=== PATIENT | male | born 1995 | race Two or more races ===

== ENCOUNTER 2022-04-15 08:31 | Emergency (ER) | payer OTHER ==
[~2022-04-15] VITALS: Ht 185.4 cm; Wt 80.7 kg
[2022-04-15 08:37] VITALS: BP 117/67
[2022-04-15] MEDS ORDERED: OMEP40CA21 PO (08:55)
--- NOTE | 2022-04-15 09:01 | NUR ---
Patient discharged to home in stable condition. Written and verbal after care instructions given. Patient verbalizes understanding of instruction.
== END 2022-04-15 09:02 | disposition home or self-care (01) ==
LOC: ER 08:35
DX: R10.13 Epigastric pain (principal); Z79.899 Other long term (current) drug therapy